=== PATIENT | male | born 1970 | race Caucasian/White ===

== ENCOUNTER 2019-08-11 13:35 | Inpatient (IN) | payer MEDICAID ==
[~2019-08-11] VITALS: Ht 160 cm; Wt 70.9 kg
[2019-08-11 14:16] LABS: Basophils # (auto) 0.1 10 ^3/uL (0-0.2); Basophils % (auto) 0.9 % (0.0-2.0); Eosinophils # (auto) 0 10 ^3/uL (0-0.8); Eosinophils % (auto) 0.5 % (0.0-7.0); Hematocrit 47.3 % (41.0-53.0); Hemoglobin 15.6 g/dL (13.5-17.5); Lymphocytes # (auto) 2.4 10 ^3/uL (0.4-5.4); Lymphocytes % (auto) 36.3 % (10.0-50.0); Mean Corpuscular Hemoglobin 29.8 pg (28.0-32.0); Mean Corpuscular Hgb Conc. 32.9 g/dL (32.0-36.0); Mean Corpuscular Volume 90.6 fL (80.0-100.0); Monocytes # (auto) 0.6 10 ^3/uL (0-1.3); Monocytes % (auto) 9.6 % (0.0-12.0); Neutrophils # (auto) 3.5 10 ^3/uL (1.6-8.6); Neutrophils % (auto) 52.7 % (37.0-80.0); Platelet Count (auto) 368 10^3/uL (140-450); Red Blood Cells 5.22 10^6/uL (4.5-5.90); Red Cell Distribution Width 14.8 % (11.8-14.3); White Blood Cell 6.6 10^3/uL (4.4-10.8)
[2019-08-11 14:42] LABS: Albumin 2.8 g/dL (3.4-5.0); Calcium 9.1 mg/dL (8.5-10.1); Potassium 4.2 mmol/L (3.5-5.1)
[2019-08-11 14:47] LABS: BUN/Creatinine Ratio 40.8; Bilirubin, Total 0.7 mg/dL (0.2-1.0); Total Protein 8.5 g/dL (6.4-8.2)
[2019-08-11] MEDS ORDERED: BISACODYL 10 MG RECT SUPP PR ONE ×2 (15:15→16:24)
[2019-08-11] MEDS ORDERED: FLEET MINERAL OIL ENEMA 133 ML PR ONE (15:15)
[2019-08-11] MEDS: SODIUM CHLORIDE 0.9% 1,000 ML IV SCH (15:29)
[2019-08-11 16:09] LABS: INR 1.33 (0.9-1.15); Partial Thromboplastin Time 25.5 sec (23.64-32.05)
[2019-08-11] MEDS ORDERED: GASTROGRAFIN 30 ML SOL ONE (17:51)
[2019-08-11] MEDS ORDERED: LACTULOSE 20Gm/30ML SOLN PEG PRN (18:00)
[2019-08-11] MEDS ORDERED: DEXTROSE (50%) 50ML SYRG IV PRN (19:00)
[2019-08-11] MEDS: ACCU-CHEK COMFORT CURVE STRIP VI SCH (21:26)
[2019-08-11] MEDS: InsuLIN REG 1unit/0.01ml Soln (100units/ml) SC SCH (21:26)
[2019-08-11] MEDS: METOCLOPRAMIDE HCL 5MG/ml INJ 2ml VIAL IV SCH (21:26)
[2019-08-11 22:00] VITALS: BP 120/68
[2019-08-12] MEDS: SODIUM CHLORIDE 0.9% 1,000 ML IV SCH (01:28)
[2019-08-12 05:00] VITALS: BP 110/61
[2019-08-12] MEDS: ACCU-CHEK COMFORT CURVE STRIP VI SCH ×3 (06:42→18:04)
[2019-08-12] MEDS: METOCLOPRAMIDE HCL 5MG/ml INJ 2ml VIAL IV SCH ×2 (06:42→14:36)
[2019-08-12] MEDS: InsuLIN REG 1unit/0.01ml Soln (100units/ml) SC SCH ×3 (06:43→17:00)
[2019-08-12 09:00] VITALS: BP 109/66
[2019-08-12] MEDS ORDERED: Glucerna 1.2 Cal 1Liter BOTTLE GT SCH (10:00)
[2019-08-12] MEDS ORDERED: FREE WATER GT SCH (10:00)
[2019-08-12] MEDS ORDERED: PANTOPRAZOLE 40 MG/10 ML VIAL INJ IV SCH (10:00)
[2019-08-12] MEDS ORDERED: BISACODYL 10 MG RECT SUPP PR PRN (10:00)
[2019-08-12 13:00] VITALS: BP 117/66
[2019-08-12 16:59] VITALS: BP 108/73
[2019-08-12 19:51] VITALS: BP 108/73
== END 2019-08-12 21:50 | disposition home or self-care (01) | DRG 252 ==
LOC: ER 13:35 → EDBD 13:35 → OVERFLOW 13:36 → CENTRAL 18:15
PROVIDERS: ADMIT Nurse Practitioner Acute Care; ATTEND Internal Medicine
PROC: 0DP6XUZ Removal of Feeding Device from Stomach, External Approach (ICD-10-PCS; principal; 2019-08-11)
PROC: 0DH63UZ Insertion of Feeding Device into Stomach, Percutaneous Approach (ICD-10-PCS; 2019-08-11)
DX: K94.23 Gastrostomy malfunction (principal); I11.0 Hypertensive heart disease with heart failure; E44.0 Moderate protein-calorie malnutrition; F20.9 Schizophrenia, unspecified; I50.42 Chronic combined systolic (congestive) and diastolic (congestive) heart failure; N13.30 Unspecified hydronephrosis; K56.41 Fecal impaction; F32.9 Major depressive disorder, single episode, unspecified; E11.9 Type 2 diabetes mellitus without complications; G80.9 Cerebral palsy, unspecified; G40.909 Epilepsy, unspecified, not intractable, without status epilepticus; E78.5 Hyperlipidemia, unspecified; Z79.4 Long term (current) use of insulin; Z68.27 Body mass index [BMI] 27.0-27.9, adult; Z88.0 Allergy status to penicillin; Y83.3 Surgical operation with formation of external stoma as the cause of abnormal reaction of the patient, or of later complication, without mention of misadventure at the time of the procedure
CPT/HCPCS: 36415; 51702; 74018; 74176; 80053; 82962; 85025; 85610; 85730; 87081; 93005; 96360; C9113; G0378

== ENCOUNTER 2020-03-15 14:16 | Emergency (ER) | payer MEDICAID ==
[~2020-03-15] VITALS: Ht 162.6 cm; Wt 72.6 kg
[2020-03-15] MEDS ORDERED: GASTROGRAFIN 30 ML SOL ONE (17:43)
[2020-03-15 19:30] VITALS: BP 116/70
== END 2020-03-16 08:51 | disposition home or self-care (01) ==
LOC: ER 14:16
DX: K94.23 Gastrostomy malfunction (principal); E11.9 Type 2 diabetes mellitus without complications; I10 Essential (primary) hypertension; R07.89 Other chest pain; F20.9 Schizophrenia, unspecified; Z88.0 Allergy status to penicillin
CPT/HCPCS: 43762; 71045; 74018; 99284; Q9963

== ENCOUNTER 2022-03-31 07:38 | Inpatient (IN) | payer MEDICAID ==
[~2022-03-31] VITALS: Ht 165.1 cm; Wt 72.2 kg
[2022-03-31] MEDS ORDERED: SODIUM CHLORIDE 0.9% 1,000 ML IV ONE (08:45)
[2022-03-31 09:47] LABS: Basophils # (auto) 0 10 ^3/uL (0-0.2); Basophils % (auto) 0.3 % (0.0-2.0); Eosinophils # (auto) 0 10 ^3/uL (0-0.8); Eosinophils % (auto) 0.3 % (0.0-7.0); Hematocrit 45.1 % (41.0-53.0); Hemoglobin 15.3 g/dL (13.5-17.5); Lymphocytes # (auto) 1.2 10 ^3/uL (0.4-5.4); Lymphocytes % (auto) 9.2 % (10.0-50.0); Mean Corpuscular Hemoglobin 33.1 pg (28.0-32.0); Mean Corpuscular Volume 97.3 fL (80.0-100.0); Monocytes # (auto) 1.7 10 ^3/uL (0-1.3); Monocytes % (auto) 12.8 % (0.0-12.0); Neutrophils # (auto) 10.4 10 ^3/uL (1.6-8.6); Neutrophils % (auto) 77.4 % (37.0-80.0); Nucleated Red Blood Cells % 0.1 %; Red Blood Cells 4.63 10^6/uL (4.5-5.90); Red Cell Distribution Width 13.9 % (11.8-14.3); White Blood Cell 13.5 10^3/uL (4.4-10.8)
[2022-03-31 10:05] LABS: Albumin 2.6 g/dL (3.4-5.0); Calcium 9.2 mg/dL (8.5-10.1)
[2022-03-31 10:10] LABS: BUN/Creatinine Ratio 17.2; Bilirubin, Total 1.2 mg/dL (0.2-1.0); Total Protein 6.3 g/dL (6.4-8.2)
[2022-03-31] MEDS ORDERED: DEXTROSE (50%) 50ML SYRG IV PRN (15:00)
[2022-03-31] MEDS ORDERED: ONDANSETRON HCL 4 MG/2 ML VIAL IV PRN (15:00)
[2022-03-31] MEDS ORDERED: LORazepam 2MG/ML-1ML VIAL IV PRN (15:15)
[2022-03-31] MEDS: SODIUM CHLORIDE 0.9% 1,000 ML IV SCH ×2 (16:07→23:20)
[2022-03-31] MEDS: InsuLIN REG 1unit/0.01ml Soln (100units/ml) SC SCH (18:49)
[2022-03-31] MEDS: ACCU-CHEK COMFORT CURVE STRIP VI SCH (18:49)
[2022-03-31 21:19] VITALS: BP 104/62
[2022-03-31] MEDS ORDERED: FAMO40TA7 PO (21:58)
[2022-03-31] MEDS ORDERED: ASPI1TAB20 PO (21:58)
[2022-03-31] MEDS ORDERED: FURO40TA4 PO (21:58)
[2022-03-31] MEDS ORDERED: [UNRECOGNIZED DRUG - CODE] PO (21:58)
[2022-03-31] MEDS ORDERED: VALP250S19 PO (21:58)
[2022-03-31] MEDS ORDERED: FENO145T27 PO (21:58)
[2022-04-01] MEDS: ACCU-CHEK COMFORT CURVE STRIP VI SCH ×4 (00:09→18:16)
[2022-04-01 05:00] VITALS: BP 134/73
[2022-04-01] MEDS: InsuLIN REG 1unit/0.01ml Soln (100units/ml) SC SCH ×4 (05:39→18:18)
[2022-04-01 07:51] LABS: Basophils # (auto) 0 10 ^3/uL (0-0.2); Basophils % (auto) 0.4 % (0.0-2.0); Eosinophils # (auto) 0 10 ^3/uL (0-0.8); Eosinophils % (auto) 0.1 % (0.0-7.0); Hematocrit 38.2 % (41.0-53.0); Lymphocytes # (auto) 1.6 10 ^3/uL (0.4-5.4); Lymphocytes % (auto) 15.1 % (10.0-50.0); Mean Corpuscular Hemoglobin 33.5 pg (28.0-32.0); Mean Corpuscular Hgb Conc. 34.1 g/dL (32.0-36.0); Mean Corpuscular Volume 98.2 fL (80.0-100.0); Monocytes # (auto) 1.4 10 ^3/uL (0-1.3); Monocytes % (auto) 12.8 % (0.0-12.0); Neutrophils # (auto) 7.6 10 ^3/uL (1.6-8.6); Neutrophils % (auto) 71.6 % (37.0-80.0); Nucleated Red Blood Cells % 0.1 %; Red Blood Cells 3.89 10^6/uL (4.5-5.90); Red Cell Distribution Width 13.8 % (11.8-14.3); White Blood Cell 10.6 10^3/uL (4.4-10.8)
[2022-04-01 08:06] LABS: Albumin 1.9 g/dL (3.4-5.0); Calcium 8.9 mg/dL (8.5-10.1); Potassium 4.1 mmol/L (3.5-5.1)
[2022-04-01 08:08] LABS: BUN/Creatinine Ratio 23.4
[2022-04-01 08:11] LABS: Bilirubin, Total 1.1 mg/dL (0.2-1.0); Total Protein 5.3 g/dL (6.4-8.2)
[2022-04-01 09:27] VITALS: BP 112/73
[2022-04-01] MEDS: ENOXAPARIN SOD 40 MG/0.4 ML SYRINGE SC SCH (12:10)
[2022-04-01] MEDS: SODIUM CHLORIDE 0.9% 1,000 ML IV SCH ×2 (12:10→12:53)
[2022-04-01 12:59] VITALS: BP 122/74
[2022-04-01] MEDS: Jevity 1.2 Cal/Fiber 1 Liter GT SCH ×3 (14:52→22:20)
[2022-04-01] MEDS: METOCLOPRAMIDE 10 mg/10ml ORAL soln GT SCH ×2 (14:52→22:20)
[2022-04-01 16:16] VITALS: BP 101/68
[2022-04-01 22:00] VITALS: BP 115/77
[2022-04-01] MEDS: ATORVASTATIN 20 MG TAB PO SCH (22:21)
[2022-04-02 05:00] VITALS: BP 128/71
[2022-04-02] MEDS: METOCLOPRAMIDE 10 mg/10ml ORAL soln GT SCH ×3 (05:52→23:33)
[2022-04-02] MEDS: Jevity 1.2 Cal/Fiber 1 Liter GT SCH ×5 (05:52→21:36)
[2022-04-02] MEDS: ACCU-CHEK COMFORT CURVE STRIP VI SCH ×5 (05:52→23:57)
[2022-04-02] MEDS: InsuLIN REG 1unit/0.01ml Soln (100units/ml) SC SCH ×4 (05:52→17:55)
[2022-04-02] MEDS: SODIUM CHLORIDE 0.9% 1,000 ML IV SCH (08:30)
[2022-04-02] MEDS: ASPirin-EC 81 mg tab PO SCH (08:47)
[2022-04-02] MEDS: FAMOTIDINE 20 MG TAB PO SCH (08:48)
[2022-04-02] MEDS: ENOXAPARIN SOD 40 MG/0.4 ML SYRINGE SC SCH (08:48)
[2022-04-02 09:15] VITALS: BP 114/69
[2022-04-02 13:00] VITALS: BP 137/115
[2022-04-02 17:00] VITALS: BP 103/68
[2022-04-02] MEDS: ATORVASTATIN 20 MG TAB PO SCH (21:37)
[2022-04-03] MEDS: InsuLIN REG 1unit/0.01ml Soln (100units/ml) SC SCH ×5 (00:05→23:32)
[2022-04-03 05:00] VITALS: BP 133/84
[2022-04-03] MEDS: ACCU-CHEK COMFORT CURVE STRIP VI SCH ×4 (05:57→23:24)
[2022-04-03] MEDS: METOCLOPRAMIDE 10 mg/10ml ORAL soln GT SCH ×3 (05:59→22:01)
[2022-04-03] MEDS: Jevity 1.2 Cal/Fiber 1 Liter GT SCH ×6 (06:15→22:00)
[2022-04-03] MEDS: SODIUM CHLORIDE 0.9% 1,000 ML IV SCH (06:15)
[2022-04-03 09:00] VITALS: BP 122/77
[2022-04-03] MEDS: FAMOTIDINE 20 MG TAB PO SCH ×2 (09:49→10:00)
[2022-04-03] MEDS: ASPirin-EC 81 mg tab PO SCH ×2 (09:49→10:00)
[2022-04-03] MEDS: ENOXAPARIN SOD 40 MG/0.4 ML SYRINGE SC SCH (09:49)
[2022-04-03] MEDS: MORPHINE SULFATE INJ 2 MG/ml SYRG IV PRN ×2 (12:06→23:30)
[2022-04-03 13:00] VITALS: BP 100/70
[2022-04-03 17:00] VITALS: BP 107/68
[2022-04-03 22:00] VITALS: BP 126/70
[2022-04-03] MEDS: levETIRAcetam 500 MG/5ML ORAL SOLN UD GT SCH (22:01)
[2022-04-03] MEDS: ATORVASTATIN 20 MG TAB PO SCH (22:01)
[2022-04-04 05:00] VITALS: BP 126/66
[2022-04-04] MEDS: InsuLIN REG 1unit/0.01ml Soln (100units/ml) SC SCH ×3 (06:00→17:59)
[2022-04-04] MEDS: ACCU-CHEK COMFORT CURVE STRIP VI SCH ×3 (06:03→17:59)
[2022-04-04] MEDS: METOCLOPRAMIDE 10 mg/10ml ORAL soln GT SCH ×2 (06:03→14:24)
[2022-04-04] MEDS: Jevity 1.2 Cal/Fiber 1 Liter GT SCH ×4 (06:03→17:59)
[2022-04-04] MEDS: ENOXAPARIN SOD 40 MG/0.4 ML SYRINGE SC SCH (08:39)
[2022-04-04] MEDS: FAMOTIDINE 20 MG TAB PO SCH (08:39)
[2022-04-04] MEDS: ASPirin-EC 81 mg tab PO SCH (08:39)
[2022-04-04 09:00] VITALS: BP 115/76
[2022-04-04] MEDS: levETIRAcetam 500 MG/5ML ORAL SOLN UD GT SCH (10:13)
[2022-04-04 13:00] VITALS: BP 129/69
[2022-04-04] MEDS ORDERED: LEVE100S9 GT (13:42)
[2022-04-04 16:55] VITALS: BP 123/75
[2022-04-04 17:00] VITALS: BP 128/75
== END 2022-04-04 19:09 | disposition home or self-care (01) | DRG 53 ==
LOC: ER 07:38 → EDBD 07:38 → TELE 15:02 → TELE-WESTW 19:54 → TELE-CENTR 04-03 02:16
PROVIDERS: ADMIT Nurse Practitioner Family; ATTEND Hospitalist
DX: R56.9 Unspecified convulsions (principal); I63.9 Cerebral infarction, unspecified; E44.0 Moderate protein-calorie malnutrition; E87.1 Hypo-osmolality and hyponatremia; E86.0 Dehydration; D72.829 Elevated white blood cell count, unspecified; E11.9 Type 2 diabetes mellitus without complications; F20.9 Schizophrenia, unspecified; R55 Syncope and collapse; Z20.822 Contact with and (suspected) exposure to COVID-19; G80.9 Cerebral palsy, unspecified; I10 Essential (primary) hypertension; Z88.0 Allergy status to penicillin; Z93.1 Gastrostomy status; Z68.23 Body mass index [BMI] 23.0-23.9, adult
CPT/HCPCS: 36415; 70450; 80053; 82962; 84484; 85025; 85379; 87081; 87426; 93005; 93306; 93886; 97163; G0378; J1815; J7060